=== PATIENT | female | born 1995 | race African-American/Black ===

== ENCOUNTER 2018-03-16 14:18 | Emergency (ER) | payer MEDICAID ==
[~2018-03-16] VITALS: Ht 175.3 cm; Wt 81.8 kg
[~2018-03-16 14:18] MED LIST: CLARITIN 1010 MG/TAB PO
[2018-03-16 14:25] VITALS: TEMP 98.3
[2018-03-16] MEDS ORDERED: TOPAMAX 25MG25 M1 PO (15:08)
[2018-03-16] MEDS ORDERED: CAPACET 325 MG-1 CAP (15:09)
[2018-03-16] MEDS ORDERED: MAXALT5 MG PO (15:09)
[2018-03-16 15:13] LABS: BASO % 0.4 % (0.0-2.0); EOS # 0.2 (0.0-0.7); EOS % 1.9 % (0-4.0); GRAN # 4.5 (1.4-6.5); GRAN % 57.7 % (42.2-75.2); HEMATOCRIT 38.5 % (37.0-47.0); HEMOGLOBIN 12.4 g/dl (12.5-16.0); LYMPH # 2.7 (1.2-3.4); LYMPH % 34.3 % (20.0-51.0); MEAN CELL VOLUME 86 fl (80.0-100.0); MEAN CORPUSCULAR HEMOGLOBIN 28 pg (27.0-31.0); MEAN CORPUSCULAR HGB CONC 32 g/dl (33.0-37.0); MEAN PLATELET VOLUME 10.7 fl (7.4-10.4); MONO # 0.4 (0.1-0.6); MONO % 5.4 % (1.7-9.3); PLATELET COUNT 209 K/mm3 (130-400); RED BLOOD COUNT 4.49 M/mm3 (4.10-5.30); REDCELL DISTRIBUTION WIDTH-CV 12.2 % (11.5-14.5)
[2018-03-16 16:20] VITALS: BP 110/70; PULSE 69
== END 2018-03-16 16:21 | disposition home or self-care (01) ==
LOC: COL.ER 14:18
PROVIDERS: Physician Assistant
DX: N93.8 Other specified abnormal uterine and vaginal bleeding (principal); Z87.42 Personal history of other diseases of the female genital tract
CPT/HCPCS: J7030